=== PATIENT | male | born 1950 | race Caucasian/White ===

== ENCOUNTER 2020-07-04 13:47 | Emergency (ER) | payer MEDICARE, OTHER ==
[~2020-07-04 13:47] MED LIST: ALLOPURINOL 30300 MG PO; ATORVASTATIN CA80 MG PO; CHILDREN'S ASPI81 MG PO; FEOSOL325 MG PO; GABAPENTIN300 MG PO; LISINOPRIL 20MG20 MG PO; LOVAZA1 GM PO; METOPROLOL SUCC50 MG PO; PANTOPRAZOLE SO40 MG PO; PERCOCET 5-3251 EACH PO; SAW PALMETTO 1160 MG PO; SILDENAFIL20 MG PO
[2020-07-04 14:44] LABS: BASOPHIL 0.5 % (0-2); EOSINOPHIL 1.5 % (0-7); HCT 40.9 % (42.0-52.0); HGB 13.4 g/dl (13.2-18.0); LYMPHOCYTE 41.3 % (15-48); MCH 30.3 pg (25.0-31.0); MCHC 32.8 g/dL (32.0-36.0); MCV 92.5 fL (78.0-100.0); MPV 10.1 fL (6.0-9.5); NEUTROPHIL 49.4 % (41-80); NRBC 0; PLT 200 K/uL (150-400); RBC 4.42 M/uL (4.70-6.00); RDW 14.3 % (11.5-14.0); WBC 7.4 K/uL (4.0-10.5)
[2020-07-04 14:57] LABS: INR 1.04 (0.9-1.2); PROTHROMBIN TIME 12.9 SECONDS (11.4-13.6); PTT 31.4 SECONDS (22.2-34.7)
[2020-07-04 15:05] LABS: ALBUMIN 3.5 g/dL (3.4-5.0); BILIRUBIN - TOTAL 0.4 mg/dL (0.2-1.0); BUN/CREAT RATIO (CALC) 20.5 RATIO; CREATININE 1.12 mg/dL (0.67-1.17); GLOBULIN (CALCULATION) 3.6 g/dL; POTASSIUM 4.4 mmol/L (3.5-5.1); TOTAL PROTEIN 7.1 g/dL (6.4-8.2)
== END 2020-07-04 17:52 | disposition home or self-care (01) ==
LOC: FER 13:47
PROVIDERS: Emergency Medicine
DX: R42 Dizziness and giddiness (principal); R53.1 Weakness; I10 Essential (primary) hypertension; Z86.79 Personal history of other diseases of the circulatory system; R00.1 Bradycardia, unspecified
CPT/HCPCS: 36415; 70450; 71045; 80053; 84484; 85025; 85610; 85730; 93005

== ENCOUNTER → 2021-05-16 | Day surgery (SDC) | payer MEDICARE, OTHER ==
[~2021-05-16] VITALS: Ht 180.3 cm; Wt 95.7 kg
[~2021-05-16] MED LIST changes: +ACETAMINOPHEN500 M1 PO; +BIOTIN5000 MCG PO; +COLACE100 MG PO; +FLOMAX0.4 MG PO; +MOTRIN600 MG PO; +NORVASC5 MG PO; +OXY-IR 5MG5 MG PO; +PEPCID AC20 MG PO; +VITAMIN B-125000 MC1 PO; +VITAMIN D350 MC5 PO
[2021-05-19 09:10] LABS: BUN/CREAT RATIO (CALC) 19.7 RATIO; CREATININE 1.27 mg/dL (0.67-1.17); POTASSIUM 4.3 mmol/L (3.5-5.1)
== END | disposition home or self-care (01) ==
LOC: FAS 08:53
PROVIDERS: Student in an Organized Health Care Education/Training Program
DX: Z12.11 Encounter for screening for malignant neoplasm of colon (principal); D12.3 Benign neoplasm of transverse colon; K40.90 Unilateral inguinal hernia, without obstruction or gangrene, not specified as recurrent; I10 Essential (primary) hypertension; E78.00 Pure hypercholesterolemia, unspecified; K21.9 Gastro-esophageal reflux disease without esophagitis; G47.33 Obstructive sleep apnea (adult) (pediatric); Z80.0 Family history of malignant neoplasm of digestive organs; Z79.899 Other long term (current) drug therapy
CPT/HCPCS: J7120

== ENCOUNTER → 2021-05-19 | Day surgery (SDC) | payer MEDICARE, OTHER ==
[~2021-05-19] VITALS: Ht 178 cm; Wt 97.0 kg
== END | disposition home or self-care (01) ==
LOC: FAS 07:46
DX: K40.90 Unilateral inguinal hernia, without obstruction or gangrene, not specified as recurrent (principal); I10 Essential (primary) hypertension; E78.00 Pure hypercholesterolemia, unspecified; K21.9 Gastro-esophageal reflux disease without esophagitis; G47.33 Obstructive sleep apnea (adult) (pediatric); Z80.0 Family history of malignant neoplasm of digestive organs; Z79.899 Other long term (current) drug therapy
CPT/HCPCS: J0690; J1100; J1644; J2250; J2405; J2704; J3010; J7120